=== PATIENT | female | born 1985 | race Native Hawaiian/Other Pacific Islander ===

== ENCOUNTER 2021-10-30 13:17 | Outpatient (CLI) | payer BC | END 2021-10-30 19:47 | disposition home or self-care (01) | LOC: RAD 13:17 | PROVIDERS: ATTEND Nurse Practitioner Family | DX: M54.50 Low back pain, unspecified (principal); M54.2 Cervicalgia; M25.551 Pain in right hip ==

== ENCOUNTER 2022-02-27 11:05 | Outpatient (CLI) | payer BC, OTHER | END 2022-02-27 19:37 | disposition home or self-care (01) | LOC: US 11:05 | PROVIDERS: ATTEND Nurse Practitioner Family | DX: R10.9 Unspecified abdominal pain (principal); R10.814 Left lower quadrant abdominal tenderness; N93.9 Abnormal uterine and vaginal bleeding, unspecified ==

== ENCOUNTER 2023-01-10 12:36 | Outpatient (CLI) | payer BC, OTHER | END 2023-01-10 19:07 | disposition home or self-care (01) | LOC: US 12:36 | PROVIDERS: ATTEND Nurse Practitioner Family | DX: R60.0 Localized edema (principal) ==